=== PATIENT | female | born 1950 | race Two or more races ===

== ENCOUNTER 2021-09-27 10:59 | Day surgery (SDC) | payer MEDICARE, OTHER ==
[2021-09-27] VITALS (8 sets, daily range): BP systolic 128–160; BP diastolic 65–81
[~2021-09-27] VITALS: Ht 160 cm; Wt 84.6 kg
[~2021-09-27 10:59] MED LIST: ASPI-57 PO; BRIM5DRO16 EACHEYE; BUPR150T8 PO; CLIN-97 PO; DORZ10DR17 OP; FLO0.4C PO; FLUO20CA39 PO; HYDR-3965 PO; HYDR-4353 PO; HYDR-4383 PO; HYDR25TA5 PO; LATA2.5D6 EACHEYE; LEVO100T46 PO; LISI40TA13 PO; METF-1203 PO; NABU-104 PO; NAPR-1154 PO; NOR5T PO; NORT10CA81 PO; ONDA8TAB9 PO; WALKERFR
[2021-09-27] MEDS ORDERED: normal saline 1000ml 1,000 ML IV PRN (11:20)
[2021-09-27] MEDS ORDERED: MONT-40 PO (11:39)
[2021-09-27] MEDS ORDERED: CARV6.253 PO (11:39)
[2021-09-27] MEDS ORDERED: FERR236T3 PO (11:39)
[2021-09-27] MEDS ORDERED: ACET-1025 PO (11:39)
[2021-09-27] MEDS ORDERED: DIPH25CA83 PO (11:39)
[2021-09-27] MEDS ORDERED: MULT-1133 (11:39)
[2021-09-27] MEDS ORDERED: gelatin sponge, absorbable (Gelfoam 12-7MM) sponge TP ONE (12:43)
[2021-09-27] MEDS ORDERED: LIDOcaine 1%/PF 5ML 10 MG/ML VIAL ONE (12:43)
[2021-09-27] MEDS ORDERED: fentaNYL/PF 50MCG/1 ML 2ML syringe ONE (12:44)
[2021-09-27] MEDS ORDERED: midazolam 1 mg/ML 2ml injection ONE (12:44)
--- NOTE | 2021-09-27 12:45 | NUR ---
Pt to IR, Report to K[facility].
--- NOTE | 2021-09-27 13:45 | NUR ---
Pt returned from IR. VSS, Denies pain. Procedure site stable, band aid in place, no bleeding or bruising noted. Pt lying on Right side (procedure side), on 2 blankets. Instructed to keep pt on Right side for approx 2 hours, and to have pt void prior to going home and to report to Dr. Vivas color and clarity.
--- NOTE | 2021-09-27 14:00 | NUR ---
Pt given juice and sandwich, alon well.
--- NOTE | 2021-09-27 14:30 | NUR ---
Dr. Vivas called, asking for report on urination status. Updated that pt is currently sleeping, no C/O pain, VSS, and pt has not voided yet. Will update Dr. Vivas as needed/
--- NOTE | 2021-09-27 15:00 | NUR ---
Pt awake, requesting to get up to void. Pt amb to restroom, gait steady. Pt voided, returning clear and light yellow in toilet, no evidence of bleeding/blood noted. Updated Dr. Vivas. Dr. Vivas stated pt is okay to discharge home.
--- NOTE | 2021-09-27 15:10 | NUR ---
Written and Verbal DC instructions given to pt, verbalizes understanding. PIV DC cath intact. Pt able to dress self, steady on feet.
--- NOTE | 2021-09-27 15:25 | NUR ---
Procedure site stable. DC to home with daughter, transferred to private car via WC, pt able to transfer self to car.
== END 2021-09-27 15:25 | disposition home or self-care (01) ==
LOC: SSTAY O 10:59
PROVIDERS: ATTEND Preventive Medicine Aerospace Medicine
DX: R80.9 Proteinuria, unspecified (principal); N28.9 Disorder of kidney and ureter, unspecified; M06.9 Rheumatoid arthritis, unspecified; M31.7 Microscopic polyangiitis; I10 Essential (primary) hypertension; D64.9 Anemia, unspecified; Z79.899 Other long term (current) drug therapy
CPT/HCPCS: 50200; 76942; 88305; 88313; 88346; 88348; 88350; 99152; 99153; J2250; J3010; J3490; 88300

== ENCOUNTER 2021-09-30 11:10 | Emergency (ER) | payer MEDICARE, OTHER ==
[~2021-09-30] VITALS: Ht 160 cm; Wt 82.7 kg
[~2021-09-30 11:10] MED LIST changes: +ACET-1025 PO; -ASPI-57 PO; -BRIM5DRO16 EACHEYE; +CARV6.253 PO; -CLIN-97 PO; +DIPH25CA83 PO; -DORZ10DR17 OP; +FERR236T3 PO; -FLO0.4C PO; -FLUO20CA39 PO; -HYDR-3965 PO; -HYDR-4353 PO; -HYDR-4383 PO; -LATA2.5D6 EACHEYE; -METF-1203 PO; +MONT-40 PO; +MULT-1133; -NABU-104 PO; -NAPR-1154 PO; -NORT10CA81 PO; -ONDA8TAB9 PO; -WALKERFR
[2021-09-30 12:48] LABS: BASOPHILS # (AUTO) 0.1 X10'3 (0-0.2); BASOPHILS % (AUTO) 0.9 % (0-1); EOSINOPHILS # (AUTO) 0.4 X10'3 (0-0.9); EOSINOPHILS % (AUTO) 4.4 % (0-6); HEMATOCRIT 30.3 % (35.0-45.0); LYMPHOCYTES # (AUTO) 2.3 X10'3 (1.1-4.8); LYMPHOCYTES % (AUTO) 23.8 % (21-51); MEAN CORPUSCULAR HEMOGLOBIN 27.7 PG (27.0-31.0); MEAN CORPUSCULAR HGB CONC 32.9 g/dL (33.0-36.5); MEAN CORPUSCULAR VOLUME 84.1 FL (78-98); MEAN PLATELET VOLUME 7.3 FL (7.4-10.4); MONOCYTES # (AUTO) 0.7 X10'3 (0-0.9); MONOCYTES % (AUTO) 7.5 % (2-12); NEUTROPHILS % (AUTO) 63.4 % (42-75); PLATELET COUNT 404 X10'3 (140-440); RED BLOOD COUNT 3.61 X10'6 (4.20-5.60); RED CELL DISTRIBUTION WIDTH 14.6 % (11.5-14.5); WHITE BLOOD COUNT 9.5 X10'3 (4.5-11.0)
[2021-09-30 13:03] VITALS: BP 143/75
[2021-09-30 13:05] LABS: ALANINE AMINOTRANSFERASE 15 U/L (12-78); ALBUMIN 3.2 G/DL (3.4-5.0); ALBUMIN/GLOBULIN RATIO 0.6 (1.1-1.5); ALKALINE PHOSPHATASE 79 IU/L (46-116); ANION GAP 10 (8-16); ASPARTATE AMINO TRANSFERASE 17 U/L (10-37); BILIRUBIN,TOTAL 0.2 MG/DL (0.1-1.0); BLOOD UREA NITROGEN 39 MG/DL (7-18); BUN/CREATININE RATIO 17.6 (6.6-38.0); CALCIUM 8.9 MG/DL (8.5-10.1); CHLORIDE 101 MMOL/L (99-107); CREATININE 2.22 MG/DL (0.40-0.90); POTASSIUM 4.4 MMOL/L (3.5-5.1); SODIUM 136 MMOL/L (135-145); TOTAL CARBON DIOXIDE 25.2 MMOL/L (24-32); TOTAL PROTEIN 8.5 G/DL (6.4-8.2); eGFR 22 ML/MIN
[2021-09-30 13:19] LABS: CLARITY,URINE CLEAR (Clear); COLOR,URINE YELLOW (Yellow); GLUCOSE, URINE NEGATIVE (Neg); KETONES,URINE NEGATIVE (Neg); LEUKOCYTE ESTERASE ,URINE NEGATIVE (Neg); NITRITES, URINE NEGATIVE (Neg); OCCULT BLOOD,URINE MODERATE (Neg); PH,URINE 5.5 (4.8-8.0); PROTEIN,URINE 100 mg/dl (Neg); UROBILINOGEN,URINE 0.2 E.U/dL (0.2-1.0)
[2021-09-30 13:22] LABS: UA COLLECTION TYPE CLN CATCH MIDSTREAM
[2021-09-30 13:23] LABS: GLUCOSE 126 MG/DL (70-104)
[2021-09-30 13:27] LABS: BACTERIA,URINE FEW /HPF (Neg); MUCUS STRANDS FEW /LPF (Neg); SQUAMOUS EPITHELIAL CELL,UR FEW /LPF (FEW); WBC,URINE 0-4 /HPF (0-4)
== END 2021-09-30 14:10 | disposition home or self-care (01) ==
LOC: ER 11:10
DX: R10.84 Generalized abdominal pain (principal); R30.9 Painful micturition, unspecified; I10 Essential (primary) hypertension; E11.9 Type 2 diabetes mellitus without complications; E03.9 Hypothyroidism, unspecified; G89.29 Other chronic pain; F41.9 Anxiety disorder, unspecified; Z90.710 Acquired absence of both cervix and uterus; Z98.890 Other specified postprocedural states; Z60.2 Problems related to living alone; Z88.0 Allergy status to penicillin; Z88.5 Allergy status to narcotic agent; Z88.8 Allergy status to other drugs, medicaments and biological substances; Z79.899 Other long term (current) drug therapy
CPT/HCPCS: 36415; 80053; 81001; 85025; 99283

== ENCOUNTER 2022-05-31 16:31 | Emergency (ER) | payer MEDICARE, OTHER | END 2022-05-31 19:02 | disposition left against medical advice (07) | LOC: ER 16:32 | DX: J11.1 Influenza due to unidentified influenza virus with other respiratory manifestations (principal); Z53.21 Procedure and treatment not carried out due to patient leaving prior to being seen by health care provider ==

== ENCOUNTER 2024-03-25 14:04 | Outpatient (CLI) | payer MEDICARE, OTHER | END 2024-03-25 23:59 | disposition home or self-care (01) | LOC: RAD 14:04 | PROVIDERS: ATTEND Student in an Organized Health Care Education/Training Program | DX: M79.671 Pain in right foot (principal); M25.562 Pain in left knee; M25.561 Pain in right knee | CPT/HCPCS: 73564; 73610; 73630 ==